=== PATIENT | male | born 1960 | race Caucasian/White ===

== ENCOUNTER → 2017-09-21 | Outpatient (CLI) | payer BC, OTHER ==
[~2017-09-21] MED LIST: CYCL10TA45 PO; CYCL10TA9 PO; FRONT WHEELED WALKER; HYDR-3874 PO; INDO25CA15 PO; LORA0.5T34 PO; Lisinopril PO; Metoprolol Succinate PO; OXYC1TAB12 PO; PRD20T PO; Senna PO
--- NOTE | 2017-09-21 15:17 | Diagnostic Imaging Report ---
PROCEDURE: CT urinary tract, rule out kidney stone. TECHNIQUE: Multiple contiguous axial images were obtained through the abdomen and pelvis without the use of intravenous contrast. INDICATION: Right flank pain. FINDINGS: Lung bases are clear. There is mild hepatic steatosis. Gallbladder is present. Pancreas is normal. Spleen is not enlarged. Adrenals are normal. There is no mass, calculus or hydronephrosis in either kidney. Ureters are not dilated. Urinary bladder appears normal. There are calcifications in the prostate. Small bowel is not dilated. There are a few diverticula in the colon but no evidence of diverticulitis. There is no intraperitoneal free air or free fluid. There is no evidence for appendicitis. IMPRESSION: Uncomplicated diverticulosis of the colon. No acute abnormality is seen. Patient has had previous lumbar spine fusion at L3-4. Dictated by: Dictated on workstation # [id number]
== END ==
LOC: RAD 14:27
PROVIDERS: ATTEND Nurse Practitioner Family
DX: K57.30 Diverticulosis of large intestine without perforation or abscess without bleeding (principal); M54.9 Dorsalgia, unspecified; Z98.1 Arthrodesis status
CPT/HCPCS: 74176

== ENCOUNTER → 2017-12-15 | Outpatient (CLI) | payer BC | LOC: CARD 13:46 | PROVIDERS: ATTEND Family Medicine | DX: R01.1 Cardiac murmur, unspecified (principal); R53.83 Other fatigue; R07.9 Chest pain, unspecified; I37.1 Nonrheumatic pulmonary valve insufficiency; Z82.49 Family history of ischemic heart disease and other diseases of the circulatory system | CPT/HCPCS: 93306 ==

== ENCOUNTER 2017-12-27 19:53 | Outpatient (CLI) | payer BC | END 2017-12-28 01:16 | disposition home or self-care (01) | LOC: SLEEP 19:53 | PROVIDERS: ATTEND Family Medicine | DX: G47.33 Obstructive sleep apnea (adult) (pediatric) (principal); R06.83 Snoring; I10 Essential (primary) hypertension; G47.00 Insomnia, unspecified; G47.10 Hypersomnia, unspecified; F39 Unspecified mood [affective] disorder ==

== ENCOUNTER → 2017-12-27 | Outpatient (CLI) | payer BC | LOC: CARD 13:25 | PROVIDERS: ATTEND Internal Medicine Cardiovascular Disease | DX: R01.1 Cardiac murmur, unspecified (principal); R53.83 Other fatigue; R07.9 Chest pain, unspecified; Z82.49 Family history of ischemic heart disease and other diseases of the circulatory system | CPT/HCPCS: 93017 ==

== ENCOUNTER 2018-11-17 10:50 | Emergency (ER) | payer BC ==
[~2018-11-17] VITALS: Ht 172.7 cm; Wt 108.9 kg
[~2018-11-17 10:50] MED LIST changes: +ASPIRIN 81 MG CHEW (CHILDREN'S ASA) ONE; +NITROGLYCERIN 0.4 MG SL TABS BTL 25'S SL ONE
[2018-11-17 11:05] LABS: BASOPHILS # (AUTO) 0.1 10^3/uL (0.0-0.1); BASOPHILS % (AUTO) 1 % (0-10); EOSINOPHILS # (AUTO) 0.3 10^3/uL (0.0-0.3); EOSINOPHILS % (AUTO) 3 % (0-10); HEMATOCRIT 40 % (40-54); HEMOGLOBIN 13.3 G/DL (13.3-17.7); LYMPHOCYTES # (AUTO) 2.7 X 10^3 (1.0-4.0); LYMPHOCYTES % (AUTO) 34 % (12-44); MEAN CORPUSCULAR HEMOGLOBIN 31 PG (25-34); MEAN CORPUSCULAR HGB CONC 33 G/DL (32-36); MEAN CORPUSCULAR VOLUME 94 FL (80-99); MEAN PLATELET VOLUME 9.8 FL (7.4-10.4); MONOCYTES % (AUTO) 12 % (0-12); NEUTROPHILS # (AUTO) 4.1 X 10^3 (1.8-7.8); NEUTROPHILS % (AUTO) 51 % (42-75); PLATELET COUNT 255 10^3/uL (130-400); RED CELL DISTRIBUTION WIDTH 13.8 % (10.0-14.5); WHITE BLOOD COUNT 8.1 10^3/uL (4.3-11.0)
[2018-11-17] MEDS ORDERED: NS IV 1000 ML 1,000 ML ONE (11:11)
[2018-11-17 11:26] LABS: ALANINE AMINOTRANSFERASE 18 U/L (0-55); ALBUMIN 4.4 GM/DL (3.2-4.5); ALKALINE PHOSPHATASE 46 U/L (40-136); BILIRUBIN,TOTAL 0.4 MG/DL (0.1-1.0); BUN/CREATININE RATIO 21; CALCIUM 9.5 MG/DL (8.5-10.1); CARBON DIOXIDE 25 MMOL/L (21-32); CHLORIDE 105 MMOL/L (98-107); CREATININE SERUM 1.05 MG/DL (0.60-1.30); GFR ESTIMATED > 60; GLUCOSE 99 MG/DL (70-105); POTASSIUM 4.1 MMOL/L (3.6-5.0); SODIUM 140 MMOL/L (135-145); TOTAL PROTEIN 7.5 GM/DL (6.4-8.2)
--- NOTE | 2018-11-17 11:30 | Diagnostic Imaging Report ---
Patient History: Chest pain. Radiation to the left jaw. Technique: Single frontal view of the chest Comparison: 04/15/2008 FINDINGS: The lung volumes are normal. No focal consolidation is seen. Left basilar atelectasis is present. No large pleural effusion or pneumothorax is seen. The cardiomediastinal silhouette is enlarged. No acute osseous abnormality is seen. IMPRESSION: 1. Left basilar atelectasis. 2. Cardiomegaly. Dictated by: Dictated on workstation # [id number]
--- NOTE | 2018-11-17 11:43 | ED Chest Pain ---
General Chief Complaint: Chest Pain Stated Complaint: CHEST PAIN,CONFUSION,JAW PAIN Nursing Triage Note: PT CO OF C/P PT STATES STARTED ABOUT 0930, RATES PAIN 5/10 STATES RADIATES INTO L JAW. WAS GIVEN 3-81MG ASA BY . CO OF NAUSEA BUT NO VOMITING. STATES THINKS INDIGESTION Nursing Sepsis Screen: No Definite Risk Source: patient Exam Limitations: no limitations (CONSTANTINO ERICKSON MD) History of Present Illness Date Seen by Provider: Nov 17, 2018 Time Seen by Provider: 11:37 Initial Comments The patient is a 58-year-old white male who presents with a complaint of chest pain. He reports that this began at about 0930. He had not done any physical activity to that point. He had eaten and was prepared to leave home to run errands. He has had fleeting episodes of chest pain before. He had an angiogram done in April 2008 which was negative for vascular bites showed an ejection fraction at the lower limits of normal. Timing/Duration: 1-3 hours Severity/Quality: mild, moderate Location: substernal Radiation: jaw, shoulders Prior CP/Workup: cardiac cath, echocardiography (CONSTANTINO ERICKSON MD) Allergies and Home Medications Allergies Coded Allergies: codeine (Verified Allergy, Unknown, 04/15/08) Home Medications Cyclobenzaprine Hcl 10 Mg Tablet, 10 MG PO TID PRN for SPASMS Prescribed by: GLORIA FIGUEROA on 01/09/141728 Indomethacin 25 Mg Capsule, 25 MG PO TID Prescribed by: CONSTANTINO ERICKSON on 02/01/15 1500 Lorazepam 0.5 Mg Tablet, 0.5 MG PO Q4H PRN for ANXIETY/AGGITATION Prescribed by: GLORIA FIGUEROA on 01/09/141728 Oxycodone Hcl/Acetaminophen 1 Tab Tablet, 1-2 TAB PO Q4H PRN for SEVERE PAIN Prescribed by: GLORIA FIGUEROA on 01/09/141728 [Lisinopril] 10 MG TAB, 10 MG PO DAILY Prescribed by: CONCEPCIÓN WHITTINGTON on 01/09/14 08 [Metoprolol Succinate] 25 MG TAB, 25 MG PO DAILY Prescribed by: CONCEPCIÓN WHITTINGTON on 01/09/14 08 [Senna] 1 EA TABLET, 2 EA PO BID Prescribed by: CONCEPCIÓN WHITTINGTON on 01/09/14 08 Patient Home Medication List Home Medication List Reviewed: Yes (DIEGO SCHULTE APRN) Review of Systems Review of Systems Constitutional: see HPI EENTM: No Symptoms Reported Respiratory: No Symptoms Reported Cardiovascular: See HPI Gastrointestinal: No Symptoms Reported Genitourinary: No Symptoms Reported Musculoskeletal: no symptoms reported Skin: no symptoms reported Psychiatric/Neurological: No Symptoms Reported Endocrine: No Symptoms Reported Hematologic/Lymphatic: No Symptoms Reported (CONSTANTINO ERICKSON MD) Past Ouncbyu-Msvxyk-Zksfpn Hx Patient Social History Alcohol Use: Denies Use Recreational Drug Use: No Smoking Status: Never a Smoker Recent Foreign Travel: No Contact w/Someone Who Travel: No Recent Infectious Disease Expo: No Recent Hopitalizations: No (CONSTANTINO ERICKSON MD) Immunizations Up To Date Tetanus Booster (TDap): Unknown (CONSTANTINO ERICKSON MD) Past Medical History Surgeries: Yes (CARPEL TUNNEL L&R, KNEE SCOPE,LSHOULDER,L FOOT, BACK SURGERY IN 1977, ) Open Heart Surgery, Transurethral Resection Respiratory: No Cardiac: No Hypertension Neurological: No Reproductive Disorders: No Gastrointestinal: No Musculoskeletal: Yes Endocrine: No Cancer: No Psychosocial: Yes Integumentary: Yes (SKIN GRAFTS) Blood Disorders: No (CONSTANTINO ERICKSON MD) Family Medical History Cancer of mouth 19 FATHER Cardiovascular disease 19 FATHER Myocardial infarction 19 FATHER No Family History of: AIDS Abdominal aortic aneurysm Wai's disease Alcoholism Alzheimer's disease Aphasia Arthritis Asthma Cataracts Colon cancer Completed stroke Congenital disease Congenital heart disease Coronary thrombosis Cystic fibrosis Deafness or hearing loss Dementia Diabetes mellitus Drug abuse Dysphasia Fibrocystic disease of breast Gastroenteritis Glaucoma Headache disorder Hypercholesterolemia Hypertension Infertility Kidney disease Neoplasm Not obtainable due to adoption Osteoporosis Parkinson's disease Prostate cancer Psychosocial problem Respiratory disorder Seizure disorder Severe allergy Thyroid disease Tuberculosis Visual disorder Physical Exam Vital Signs Vital Signs - First Documented 11/17/18 10:52 Temp 98.1 Pulse 64 Resp 18 B/P (MAP) 123/70 (87) Pulse Ox 94 (DIEGO SCHULTE APRN) Vital Signs Capillary Refill : Less Than 3 Seconds (CONSTANTINO ERICKSON MD) Height, Weight, BMI Height: 5'8.00" Weight: 240lbs. 0.2oz. 108.758525dm; BMI Method:Stated General Appearance: Mild Distress HEENT: Normal ENT Inspection Neck: Normal Inspection Respiratory: Chest Non Tender, Lungs Clear, Normal Breath Sounds, No Accessory Muscle Use, No Respiratory Distress Cardiovascular: Regular Rate, Rhythm, No Edema, No Gallop, No JVD, No Murmur, Normal Peripheral Pulses Gastrointestinal: Normal Bowel Sounds (obese), Non Tender, Other Extremity: Normal Capillary Refill, Normal Inspection, Normal Range of Motion, Non Tender, No Calf Tenderness, No Pedal Edema Neurologic/Psychiatric: Alert, Oriented x3, No Motor/Sensory Deficits, Normal Mood/Affect Skin: Normal Color, Warm/Dry Lymphatic: No Adenopathy (CONSTANTINO ERICKSON MD) Progress/Results/Core Measures Results/Orders Lab Results Laboratory Tests Test 11/17/18 11:00 11/17/18 13:00 Range/Units White Blood Count 8.1 4.3-11.0 10^3/uL Red Blood Count 4.28 L 4.35-5.85 10^6/uL Hemoglobin 13.3 13.3-17.7 G/DL Hematocrit 40 40-54 % Mean Corpuscular Volume 94 80-99 FL Mean Corpuscular Hemoglobin 31 25-34 PG Mean Corpuscular Hemoglobin Concent 33 32-36 G/DL Red Cell Distribution Width 13.8 10.0-14.5 % Platelet Count 255 130-400 10^3/uL Mean Platelet Volume 9.8 7.4-10.4 FL Neutrophils (%) (Auto) 51 42-75 % Lymphocytes (%) (Auto) 34 12-44 % Monocytes (%) (Auto) 12 0-12 % Eosinophils (%) (Auto) 3 0-10 % Basophils (%) (Auto) 1 0-10 % Neutrophils # (Auto) 4.1 1.8-7.8 X 10^3 Lymphocytes # (Auto) 2.7 1.0-4.0 X 10^3 Monocytes # (Auto) 1.0 0.0-1.0 X 10^3 Eosinophils # (Auto) 0.3 0.0-0.3 10^3/uL Basophils # (Auto) 0.1 0.0-0.1 10^3/uL Sodium Level 140 135-145 MMOL/L Potassium Level 4.1 3.6-5.0 MMOL/L Chloride Level 105 98-107 MMOL/L Carbon Dioxide Level 25 21-32 MMOL/L Anion Gap 10 5-14 MMOL/L Blood Urea Nitrogen 22 H 7-18 MG/DL Creatinine 1.05 0.60-1.30 MG/DL Estimat Glomerular Filtration Rate > 60 BUN/Creatinine Ratio 21 Glucose Level 99 70-105 MG/DL Calcium Level 9.5 8.5-10.1 MG/DL Corrected Calcium 9.2 8.5-10.1 MG/DL Total Bilirubin 0.4 0.1-1.0 MG/DL Aspartate Amino Transf (AST/SGOT) 13 5-34 U/L Alanine Aminotransferase (ALT/SGPT) 18 0-55 U/L Alkaline Phosphatase 46 40-136 U/L Troponin I < 0.028 < 0.028 <0.028 NG/ML Total Protein 7.5 6.4-8.2 GM/DL Albumin 4.4 3.2-4.5 GM/DL (DIEGO SCHULTE APRN) Medications Given in ED Current Medications Medications Dose Ordered Sig/[facility] Route Start Time Stop Time Status Last Admin Dose Admin Aspirin 81 mg STK-MED ONCE .ROUTE 11/17/18 10:50 11/17/18 10:58 DC 11/17/18 11:00 81 MG Nitroglycerin 0.4 mg STK-MED ONCE SL 11/17/18 10:50 11/17/18 10:58 DC 11/17/18 11:00 0.4 MG Sodium Chloride 1,000 ml @ ud STK-MED ONCE .ROUTE 11/17/18 11:11 11/17/18 11:19 DC 11/17/18 11:21 1,000 MLS/HR (DIEGO SCHULTE APRN) Vital Signs/I&O 11/17/18 10:52 Temp 98.1 Pulse 64 Resp 18 B/P (MAP) 123/70 (87) Pulse Ox 94 (DIEGO SCHULTE APRN) Blood Pressure Mean: 87 Departure Communication (Admissions) [address] Coy who is the hospitalist today. The first troponin was negative. We elected to repeat in 2 hours which would take as to 1300 and consider discharge for outpatient workup if troponin is still in the normal range and he has no more symptoms. 1255 transferred care to Mr. Schulte. The patient will have disposition dependent on his troponin number 2 (CONSTANTINO ERICKSON MD) 7375-patient remains pain-free sitting up in bed feeling well states he is ready to go home. EKG is sinus without ST segment changes or ectopy. The repeat troponin still negative. He had a clean heart catheter entirely in regards to the coronary arteries in 2008. He reports the pain in his chest began in the suprasternal notch and follow down the midline of his chest to the epigastric region. GERD versus esophageal spasm could've contributed to this. (DIEGO SCHULTE APRN) Impression Primary Impression: Chest pain Qualified Codes: R07.9 - Chest pain, unspecified Disposition: HOME, SELF-CARE Condition: Stable Departure-Patient Inst. Decision time for Depature: 13:56 (DIEGO SCHULTE APRN) Referrals: ROX PETERS MD FACP [facility] Dawna QUINONES MD, BASHAR J MD ORENDER, JACQUELINE S DO (PCP/Family) Primary Care Physician Patient Instructions: Chest Pain (DC) Add. Discharge Instructions: 1. It would still be worthwhile to follow-up with a human resources coordinator for evaluation and to discuss stress testing in the next few weeks. Return to ER for any concerns or recurrent symptoms. All discharge instructions reviewed with patient and/or family. Voiced understanding. CONSTANTINO ERICKSON MD Nov 17, 2018 11:43 DIEGO SCHULTE APRN Nov 17, 2018 13:58
[2018-11-17 14:07] VITALS: BP 109/71
== END 2018-11-17 14:07 | disposition home or self-care (01) ==
LOC: EDUNIT# 10:50 → ER 10:52
DX: R07.2 Precordial pain (principal); I10 Essential (primary) hypertension; Z88.5 Allergy status to narcotic agent; Z82.49 Family history of ischemic heart disease and other diseases of the circulatory system; Z80.0 Family history of malignant neoplasm of digestive organs
CPT/HCPCS: 36415; 71045; 80053; 84484; 85025; 93005; 96360

== ENCOUNTER 2019-03-21 05:36 | Outpatient (CLI) | payer BC ==
[~2019-03-21] VITALS: Ht 175.3 cm; Wt 117.7 kg
[~2019-03-21 05:36] MED LIST changes: -ASPIRIN 81 MG CHEW (CHILDREN'S ASA) ONE; -NITROGLYCERIN 0.4 MG SL TABS BTL 25'S SL ONE
[2019-03-21] MEDS ORDERED: OMEP40CA36 PO (09:01)
[2019-03-21] MEDS ORDERED: SERT50TA9 PO (09:01)
[2019-03-21] MEDS ORDERED: AMLO5TAB9 PO (09:01)
[2019-03-21] MEDS ORDERED: CETI10TA20 PO (09:01)
[2019-03-21] MEDS ORDERED: HYDR25TA4 PO (09:01)
[2019-03-21] MEDS ORDERED: LISI40TA PO (09:01)
[2019-03-22] MEDS ORDERED: PANT40TA2 PO (10:31)
== END 2019-03-21 09:12 | disposition home or self-care (01) ==
LOC: PREOP 05:36
PROVIDERS: ATTEND Surgery
DX: Z01.818 Encounter for other preprocedural examination (principal)

== ENCOUNTER 2019-03-22 09:02 | Day surgery (SDC) | payer BC ==
[~2019-03-22] VITALS: Ht 175.3 cm; Wt 117.7 kg
[2019-03-22] VITALS (11 sets, daily range): BP systolic 108–170; BP diastolic 57–93
[~2019-03-22 09:02] MED LIST changes: +AMLO5TAB9 PO; +CETI10TA20 PO; +HYDR25TA4 PO; -INDO25CA15 PO; +INDO25CA99 PO; +LISI40TA PO; +OMEP40CA27 PO; +SERT50TA9 PO
[2019-03-22] MEDS ORDERED: NS IV 500 ML 500 ML ONE (09:11)
[2019-03-22] MEDS ORDERED: NS IV 500 ML 500 ML IV PRN (09:11)
[2019-03-22] MEDS ORDERED: LIDOCAINE JELLY 2% 6 ML SYRINGE MM PRN (09:15)
[2019-03-22] MEDS ORDERED: HURRICAINE EXT TUBE (BENZOCAINE) XX PRN (09:15)
[2019-03-22] MEDS ORDERED: fentaNYL INJECTION 100 MCG/2 ML AMP IVP ONE (09:15)
[2019-03-22] MEDS ORDERED: HURRICAINE EXT TUBE (BENZOCAINE) ONE (10:17)
[2019-03-22] MEDS ORDERED: LIDOCAINE JELLY 2% 6 ML SYRINGE ONE (10:17)
[2019-03-22] MEDS ORDERED: MIDAZOLAM 5 MG/5 ML (VERSED) VIAL ONE ×2 (10:17)
[2019-03-22] MEDS ORDERED: fentaNYL INJECTION 100 MCG/2 ML AMP ONE (10:17)
--- NOTE | 2019-03-22 10:28 | Conscious Sedation/ASA ---
Conscious Sedation Pre-Proced Time 10:00 ASA Score 2 For ASA 3 and 4: Consider anesthesia and medical clearance. Also, for patients with a history of failed moderate sedation consider anesthesia. Airway Lungs Heart ASA score ASA 1: a normal healthy patient ASA 2: a patient with a mild systemic disease (mid diabetes, controlled hypertension, obesity ASA 3: a patient with a severe systemic disease that limits activity (angina, COPD, prior Myocardial infarction) ASA 4: a patient with an incapacitating disease that is a constant threat to life (CHF, renal failure) ASA 5: a moribund patient not expected to survive 24 hrs. (ruptured aneurysm) ASA 6: a declared brain- patient whose organs are being harvested. For emergent operations, add the letter E after the classification Mallampati Classification Grade 2 Sedation Plan Analgesia, Amnesia, Plan communicated to team members, Discussed options with patient/fam, Discussed risks with patient/fam The patient is an appropriate candidate to undergo the planned procedure, sedation, and anesthesia. The patient immediately re-assessed prior to indication. MARISABEL NORRIS MD Mar 22, 2019 10:28
[2019-03-22] MEDS: MIDAZOLAM 5 MG/5 ML (VERSED) VIAL IV PRN ×2 (10:29→10:41)
--- NOTE | 2019-03-22 10:29 | Progress Note-Pre Operative ---
Pre-Operative Progress Note H&P Reviewed The H&P was reviewed, patient examined and no changes noted. Date Seen by Provider: Mar 22, 2019 Time Seen by Provider: 10:00 Date H&P Reviewed: Mar 22, 2019 Time H&P Reviewed: 10:00 Pre-Operative Diagnosis: PUD, GERD MARISABEL NORRIS MD Mar 22, 2019 10:29
[2019-03-22] MEDS ORDERED: ACETAMINOPHEN 325 MG TABLET PO PRN (10:30)
[2019-03-22] MEDS ORDERED: ONDANSETRON 4 MG/2 ML (SDV) Z0FRAN IVP PRN (10:30)
[2019-03-22] MEDS ORDERED: HYDROcodone/APAP 5 MG/325 MG (LORTAB) TAB PO PRN (10:30)
[2019-03-22] MEDS ORDERED: morphine INJ 10 MG/ML 1ML (SYR OR VIAL) IVP PRN ×2 (10:30)
[2019-03-22] MEDS ORDERED: PANT40TA2 PO (10:31)
--- NOTE | 2019-03-22 10:32 | Discharge Inst-Surgical ---
D/C Lap Instructions-MYRNA New, Converted, or Re-Newed RX: RX on Chart Follow Up Appt in 2 weeks Activity as tolerated High Fiber Diet 25g or more per day Avoid Alcohol, Caffeine, Spicy [place] and Acid foods. Drink 64 fluid oz or more of fluids per day. Symptoms to Report: Fever over 101 degree F, Nausea/Vomiting If any problems/questions: Contact your physician or go to Emergency Room MARISABEL NORRIS MD Mar 22, 2019 10:31
--- NOTE | 2019-03-22 11:09 | Progress Note-Post Operative ---
Post-Operative Progess Note Surgeon (s)/Business Management Consultant (s) Surgeon MARISABEL NORRIS MD Business Management Consultant: none Pre-Operative Diagnosis PUD, GERD Post-Operative Diagnosis reflux esophagitis(stage 2), mild esoph stricture, small HH(2cm), moderate gastritis. Procedure & Operative Findings Date of Procedure 03/22/19 Procedure Performed/Findings EGD with bx. Anesthesia Type CS Estimated Blood Loss Estimated blood loss (mL): minimal Specimens/Packing Specimens Removed ge jxn, antrum MARISABEL NORRIS MD Mar 22, 2019 11:09
--- NOTE | 2019-03-22 16:39 | OPERATIVE REPORT ---
DATE OF SERVICE: 03/22/2019 ATTENDING PRIMARY CARE PHYSICIAN: Tala Robles DO PREOPERATIVE DIAGNOSES: History of peptic ulcer disease and mild gastroesophageal reflux disease. POSTOPERATIVE DIAGNOSES: Reflux esophagitis stage II with a mild distal esophageal stricture and Schatzki's ring, small hiatal hernia 2 cm in size, moderate gastritis. No formal ulcerations and no distal obstructions. PROCEDURE: EGD with biopsy. SURGEON: Marisabel Norris MD. ANESTHESIA: Conscious sedation. ESTIMATED BLOOD LOSS: Minimal. FINDINGS: Reflux esophagitis stage II with a mild distal esophageal stricture and Schatzki's ring, small hiatal hernia 2 cm in size, moderate gastritis. No formal ulcerations and no distal obstructions. DISPOSITION: The patient tolerated the procedure well. INDICATIONS: The patient is a 58-year-old male referred over to us for an upper endoscopy. He has a history of smoking as well as heavy alcohol use. He was involved in a third degree ervin of his hands, requiring multiple debridement and skin grafting as well as a physical therapy and range of motion. Since that time, he has refrained from drinking alcohol. He does report that he has had issues with heartburn as well as peptic ulcer disease in the past and is currently on omeprazole 40 mg daily. He is currently undergoing cardiac workup, which will include a stress test and possible cardiac catheterization and anticoagulation therapy. DESCRIPTION OF PROCEDURE: The patient was brought to the endoscopy suite, laid in the left lateral decubitus position. After adequate IV pain and sedative medications and conscious sedation anesthesia, the mouthpiece was applied. The endoscope was placed in the mouth, visualizing the pharynx and hypopharyngeal region. Vocal cords, epiglottis and vallecula identified and appeared to be normal. The endoscope was then gently intubated into the esophageal opening and esophagus insufflated. The endoscope was then advanced to the first, second and third portion of the esophagus at the level of the GE junction, a reflux esophagitis stage II identified as well as a mild distal esophageal stricture and Schatzki's ring. A biopsy was taken of the GE junction with forceps with visualization of good hemostasis. The endoscope was then advanced into the stomach and endoscope retroflexed, visualizing a small hiatal hernia approximately 2 cm in size. There was a moderate severity gastritis. No formal ulcerations, polyps, nor any neoplasms identified. A biopsy was taken of the antrum to rule out H. pylori with visualization of good hemostasis. The endoscope was then advanced to the pylorus and the first and second portion of the duodenum, which appeared normal and no distal obstructions as well as no ulcerations. The endoscope was then slowly withdrawn while taking a second look and suctioning of residual air with no additional findings. The patient tolerated the procedure well. We will recommend the necessary lifestyle and diet accommodation including cessation from alcohol and tobacco products as well as caffeinated beverages, spicy, greasy and acidic foods as well as taking a small and more frequent meals, avoidance of eating at night as well as head elevation while lying supine. Any diet and exercise regimen that helps with weight maintenance and loss would also be beneficial. We will also switch him from omeprazole 40 mg to pantoprazole 40 mg daily. There are no contraindications to anticoagulation. Job ID: [id number] DocumentID: [id number] Dictated Date: 03/22/2019 11:09:11 Real Estate Firm Manager Date: 03/22/2019 16:38:08 Dictated By: MARISABEL NORRIS MD
== END 2019-03-22 11:30 | disposition home or self-care (01) ==
LOC: ENDO 09:02
PROVIDERS: ATTEND Surgery
DX: K21.0 Gastro-esophageal reflux disease with esophagitis (principal); K22.2 Esophageal obstruction; K29.50 Unspecified chronic gastritis without bleeding; K44.9 Diaphragmatic hernia without obstruction or gangrene; I10 Essential (primary) hypertension; G47.33 Obstructive sleep apnea (adult) (pediatric); Z88.5 Allergy status to narcotic agent; Z79.899 Other long term (current) drug therapy; Z87.11 Personal history of peptic ulcer disease; Z87.891 Personal history of nicotine dependence; Z82.49 Family history of ischemic heart disease and other diseases of the circulatory system; Z80.8 Family history of malignant neoplasm of other organs or systems

== ENCOUNTER → 2019-04-03 | Outpatient (CLI) | payer BC ==
[~2019-04-03] VITALS: Ht 175 cm; Wt 117.0 kg
[~2019-04-03] MED LIST changes: +CATHETER FLUSH 10 ML SYR IV PRN; +PANT40TA2 PO
[2019-04-03 08:49] VITALS: BP 137/78
--- NOTE | 2019-04-03 19:33 | STRESS TEST ---
DATE OF SERVICE: 04/03/2019 EXERCISE MYOVIEW STRESS TEST REPORT REFERRING PHYSICIAN: Tala Robles DO Baseline heart rate is 54, baseline blood pressure 126/83. Baseline EKG is sinus rhythm with no ischemic changes. In summary, the patient was injected with 10.98 mCi of technetium-99 Myoview and the resting images were obtained. Then, the patient started exercising with a baseline heart rate, blood pressure and EKG mentioned above. The patient was able to exercise for 9 minutes and 30 seconds on standard Morteza protocol. With peak exercise level, occasional PVCs were noted. No acute ischemic changes. The patient was injected with 29.2 mCi of technetium-99 Myoview. During recovery, heart rate and blood pressure returned to baseline. EKG returned to baseline. The resting and stress images were reviewed and compared in the short axis, horizontal long axis, and vertical long axis views. Review of the images showed good radiotracer uptake with no significant ischemia or infarction. SSS is 5, SDS 1, TID value 1.03. On the gated images, the left ventricle appeared to be normal size with normal contractility. Calculated ejection fraction 62%. CONCLUSION: 1. Good exercise tolerance, a total of 9 minutes 30 seconds on standard Morteza protocol, total of 10.3 METS achieving 88% of maximum expected heart rate. 2. Severe hypertensive response to exercise with peak blood pressure 233/76 returned to baseline during recovery. 3. Minimal nondiagnostic EKG changes with exercise returned to baseline during recovery. 4. No ischemia or infarction on SPECT images. 5. Normal left ventricular size with normal contractility. Calculated ejection fraction 62%. Job ID: [id number] DocumentID: [id number] Dictated Date: 04/03/2019 15:19:31 Driving Instructor Date: 04/03/2019 19:32:06 Dictated By: UPJA LOPEZ MD
== END ==
LOC: CARD 03-25 06:32
PROVIDERS: ATTEND Internal Medicine Cardiovascular Disease
DX: I34.0 Nonrheumatic mitral (valve) insufficiency (principal); I10 Essential (primary) hypertension; G47.33 Obstructive sleep apnea (adult) (pediatric)
CPT/HCPCS: 78452; 93017

== ENCOUNTER → 2020-03-17 | Outpatient (CLI) | payer BC ==
[~2020-03-17] MED LIST changes: +AMLO-250 PO; -AMLO5TAB9 PO; -CATHETER FLUSH 10 ML SYR IV PRN; -CETI10TA20 PO; +CETI10TA49 PO
--- NOTE | 2020-03-17 14:28 | Diagnostic Imaging Report ---
EXAMINATION: CT head without contrast. TECHNIQUE: Multiple contiguous axial images were obtained through the brain without the use of intravenous contrast. All CT scans use one or more of the following dose optimizing techniques: automated exposure control, MA and/or KvP adjustment based on a patient size and exam type, or iterative reconstruction. HISTORY: Right-sided headache. Family history of brain tumor. COMPARISON: CT head on 01/02/2014. FINDINGS: No large acute territorial ischemia, mass, or hemorrhage. No midline shift or mass effect. The ventricles, cortical sulci, and basilar cisterns are patent and unremarkable. The orbits are normal. Paranasal sinuses are normal. Mastoid air cells are clear. No soft tissue abnormality is seen. No osseus lesions or fractures are seen. IMPRESSION: 1. No large acute territorial ischemia, mass, or hemorrhage. Dictated by: Dictated on workstation # [id number]
== END ==
LOC: RAD 13:56
PROVIDERS: ATTEND Family Medicine
DX: R51.9 Headache, unspecified (principal); Z85.841 Personal history of malignant neoplasm of brain
CPT/HCPCS: 70450

== ENCOUNTER → 2020-04-20 | Outpatient (CLI) | payer BC ==
[~2020-04-20] VITALS: Ht 175.3 cm; Wt 113.6 kg
[~2020-04-20] MED LIST changes: +BAMLANIVIMAB (NON FORM) 700 MG in NS (IVPB) 250 ML IV ONE; +EPINEPHrine INJECTION 1 MG/ML AMP IM PRN; +diphenhydrAMINE 50 MG/ML INJ (BENADRYL) IV PRN
[2020-04-20 12:12] VITALS: BP 125/69
[2020-04-20 14:22] VITALS: BP 115/74
== END ==
LOC: INFUSION 12:15
PROVIDERS: ATTEND Nurse Practitioner Family
DX: U07.1 COVID-19 (principal)

== ENCOUNTER → 2020-12-29 | Outpatient (CLI) | payer BC ==
[~2020-12-29] MED LIST changes: -BAMLANIVIMAB (NON FORM) 700 MG in NS (IVPB) 250 ML IV ONE; -EPINEPHrine INJECTION 1 MG/ML AMP IM PRN; -LISI40TA PO; +LISI40TA9 PO; -OMEP40CA27 PO; +OMEP40CA6 PO; +SERT-413 PO; -SERT50TA9 PO; -diphenhydrAMINE 50 MG/ML INJ (BENADRYL) IV PRN
== END ==
LOC: LABNPT 06:31
PROVIDERS: ATTEND Orthopaedic Surgery Orthopaedic Surgery of the Spine
DX: Z01.812 Encounter for preprocedural laboratory examination (principal); Z20.822 Contact with and (suspected) exposure to COVID-19
CPT/HCPCS: 87635

== ENCOUNTER 2021-12-07 11:24 | Outpatient (CLI) | payer BC ==
[~2021-12-07] VITALS: Ht 175.3 cm; Wt 118.4 kg
== END 2021-12-07 12:10 ==
LOC: PREOP 11:24
PROVIDERS: ATTEND Surgery
DX: Z01.818 Encounter for other preprocedural examination (principal); Z12.11 Encounter for screening for malignant neoplasm of colon

== ENCOUNTER 2021-12-08 12:31 | Day surgery (SDC) | payer BC ==
[~2021-12-08] VITALS: Ht 175 cm; Wt 118.4 kg
[2021-12-08] MEDS ORDERED: LACTATED RINGERS 1,000 ML IV STA (12:33)
[2021-12-08] MEDS ORDERED: LIDOCAINE JELLY 2% 6 ML SYRINGE MM PRN (12:45)
[2021-12-08] MEDS ORDERED: HURRICAINE EXT TUBE (BENZOCAINE) XX PRN (12:45)
[2021-12-08 12:55] VITALS: BP 131/78
--- NOTE | 2021-12-08 13:07 | Progress Note-Pre Operative ---
Pre-Operative Progress Note Date of Available H&P: Dec 08, 2021 Date H&P Reviewed: Dec 08, 2021 Time H&P Reviewed: 13:00 History & Physical: No changes noted Pre-Operative Diagnosis: GERD, rectal bleed, anemia MARISABEL NORRIS MD Dec 08, 2021 13:07
--- NOTE | 2021-12-08 13:09 | Discharge Inst-Surgical ---
D/C Lap Instructions-MYRNA Follow Up Activity as tolerated High Fiber Diet 25g or more per day Avoid Alcohol, Caffeine, Spicy [place] and Acid foods. Drink 64 fluid oz or more of fluids per day. Symptoms to Report: Fever over 101 degree F, Nausea/Vomiting If any problems/questions: Contact your physician or go to Emergency Room MARISABEL NORRIS MD Dec 08, 2021 13:09
[2021-12-08] MEDS ORDERED: ONDANSETRON 4 MG (ZOFRAN) ORAL DISSOLVE TAB PO PRN (13:15)
[2021-12-08] MEDS ORDERED: ONDANSETRON 4 MG/2 ML (SDV) Z0FRAN IVP PRN (13:15)
[2021-12-08] MEDS ORDERED: PROPOFOL INJECTION 50 ML IV ONE (13:39)
[2021-12-08] MEDS ORDERED: MIDAZOLAM 2 MG/2 ML (VERSED) VIAL ONE (13:39)
[2021-12-08 14:34] VITALS: BP 99/58
[2021-12-08 14:39] VITALS: BP 104/69
[2021-12-08 14:40] VITALS: BP 104/69
--- NOTE | 2021-12-08 14:49 | Progress Note-Post Operative ---
Post-Operative Progess Note Surgeon (s)/Highway Painter (s) Surgeon MARISABEL NORRIS MD Highway Painter: none Pre-Operative Diagnosis GERD, rectal bleed, anemia Post-Operative Diagnosis reflux esophagitis(grade B), small HH(2cm), moderate gastritis. chronic stage 2 ext and int hemorrhoids, chronic healed fissure, mild sigmoid diverticulosis. Procedure & Operative Findings Date of Procedure 12/08/21 Procedure Performed/Findings EGD with bx. colonoscopy Anesthesia Type mac Estimated Blood Loss Estimated blood loss (mL): minimal Specimens/Packing Specimens Removed ge jxn, antrum MARISABEL NORRIS MD Dec 08, 2021 14:49
[2021-12-08 15:25] VITALS: BP 104/69
--- NOTE | 2021-12-09 00:56 | OPERATIVE REPORT ---
DATE OF SERVICE: 12/08/2021 ATTENDING PRIMARY CARE PHYSICIAN: Marilyn Robles DO PREOPERATIVE DIAGNOSES: Gastroesophageal reflux disease, rectal bleed, anemia. POSTOPERATIVE DIAGNOSES: Reflux esophagitis, Challis grade C, small hiatal hernia approximately 2 cm in size, moderate gastritis. No distal obstructions. Chronic stage II external and internal hemorrhoids, mild sigmoid diverticulosis. PROCEDURE: EGD with biopsy, colonoscopy with biopsy. SURGEON: Marisabel Norris MD. ANESTHESIA: Monitored anesthesia care. ESTIMATED BLOOD LOSS: Minimal. DISPOSITION: The patient tolerated the procedure well. INDICATIONS: The patient is a 61-year-old male referred over to us for an EGD and colonoscopy. He has had issues with crampy abdominal pain as well as constipation and intermittent diarrhea. With these episodes, he does report noticing some self-limited red blood per rectum. He does not report any nausea, no vomiting. He does report a longstanding history of gastroesophageal reflux disease and was found to have a mild stricture at this time too. He does have a longstanding history of tobacco and alcohol abuse; however, he stopped both of them 4 years ago and has not used either since that time. He was also found to be anemic on recent laboratory work. DESCRIPTION OF PROCEDURE: The patient was brought to the endoscopy suite, laid in left lateral decubitus position. After adequate IV pain and sedative medications and monitored anesthesia care, the mouthpiece was applied. The endoscope was placed in the mouth, visualizing the pharynx and hypopharyngeal region. Vocal cords, epiglottis and vallecula identified and appeared to be normal. The endoscope was then intubated into the esophageal opening and esophagus insufflated. The endoscope was then advanced through the first, second and third portion of the esophagus at the level of the GE junction, a reflux esophagitis, Challis grade B identified. There were no ulcers or strictures identified in this region. A biopsy was taken with forceps with visualization of good hemostasis. The endoscope was then advanced in the stomach and endoscope retroflexed, visualizing a small hiatal hernia approximately 2 cm in size. There was a moderate severity gastritis more towards the stomach antrum; however, no formal ulcerations, polyps or any neoplasms. A biopsy was taken of the antrum to rule out H. pylori with visualization of good hemostasis. The endoscope was then advanced to the pylorus and the first and second portion of the duodenum, which appeared normal with no distal obstructions. The endoscope was then slowly withdrawn while taking a second look and suctioning of residual air with no additional findings. A digital rectal examination was performed, which revealed chronic stage II external and internal hemorrhoids, not actively edematous nor inflamed and no bleeding. Normal sphincter tone was felt and there were no palpable masses. Prostate gland was palpable and appeared normal. The endoscope was then intubated to the anus and rectum gently insufflated. The endoscope was then advanced to the valves of [place] of the rectum with no polyps or any neoplasms identified. Through the sigmoid colon, mild sigmoid diverticulosis identified. The endoscope was then advanced to the remainder of the descending, transverse and ascending colon to the cecum, which appeared normal with no polyps or any neoplasms identified throughout the colon or rectum. The endoscope was then slowly withdrawn while taking a second look and suctioning of residual air with no additional findings. The patient tolerated the procedure well. We will recommend the necessary and lifestyle and dietary accommodation including small and more frequent meals, avoidance of eating at night as well as head elevation while lying supine. He also needs to avoid caffeinated beverages, spicy, greasy and acidic foods. Any form of regularly scheduled diet and exercise modality to even promote a marginal amount of weight loss of 10 to 15 pounds will also help dramatically. We will also start him on omeprazole 40 mg daily to be taken at a separate time of the day from his pantoprazole. We will also recommend a high-fiber diet with addition of a fiber supplement, which equal or exceed 30 grams daily to promote a soft consistency stool on a daily basis. He does not have a family history of colon cancer and if he is asymptomatic, he does not need another colonoscopy for another 10 years. Job ID: [id number] DocumentID: [id number] Dictated Date: 12/08/2021 14:43:27 Pole Tester Date: 12/09/2021 00:55:05 Dictated By: MARISABEL NORRIS MD
--- NOTE | 2021-12-09 07:53 | Anesthesia-General Post-Op ---
MAC Patient Condition Mental Status/LOC: Same as Preop Cardiovascular: Satisfactory Nausea/Vomiting: Absent Respiratory: Satisfactory Pain: Controlled Complications: Absent Post Op Complications Complications None Follow Up Care/Instructions Patient Instructions None needed. Anesthesiology Discharge Order Discharge Order Patient was doing well yesterday after the procedure with no complaints, stable vital signs, no apparent adverse anesthesia problems. No complications reported per nursing and he was discharged to home. IRAM GHTORA DO Dec 09, 2021 07:53
== END 2021-12-08 15:25 | disposition home or self-care (01) ==
LOC: ENDO 12:31
PROVIDERS: ATTEND Surgery
DX: D12.0 Benign neoplasm of cecum (principal); K21.00 Gastro-esophageal reflux disease with esophagitis, without bleeding; K63.5 Polyp of colon; K57.30 Diverticulosis of large intestine without perforation or abscess without bleeding; K31.89 Other diseases of stomach and duodenum; D64.9 Anemia, unspecified; K44.9 Diaphragmatic hernia without obstruction or gangrene; K64.1 Second degree hemorrhoids; K64.8 Other hemorrhoids; K29.70 Gastritis, unspecified, without bleeding; Z87.891 Personal history of nicotine dependence; K92.1 Melena; E66.9 Obesity, unspecified; Z68.38 Body mass index [BMI] 38.0-38.9, adult

== ENCOUNTER 2022-03-26 19:56 | Emergency (ER) | payer BC ==
[~2022-03-26] VITALS: Ht 173 cm; Wt 119.0 kg
[2022-03-26] MEDS ORDERED: OMEP40CA6 (20:03)
[2022-03-26] MEDS ORDERED: PANT40TA52 (20:03)
[2022-03-26] MEDS ORDERED: OXYC1TAB11 (20:03)
[2022-03-26] MEDS ORDERED: NALO4SPR3 (20:03)
[2022-03-26] MEDS ORDERED: SERT-414 (20:03)
[2022-03-26] MEDS ORDERED: DIAZ5TAB49 (20:03)
[2022-03-26] MEDS ORDERED: TETANUS,DIPTH,PERTUSS P/F (BOOSTRIX) 0.5 ML VIAL IM ONE (20:15)
--- NOTE | 2022-03-26 20:46 | Diagnostic Imaging Report ---
INDICATION: Fall with head and neck pain. TECHNIQUE: Multiple contiguous axial images were obtained through the brain and cervical spine without the use of intravenous contrast. Sagittal and coronal reformations through the cervical spine were then performed. Auto Exposure Controls were utilized during the CT exam to meet ALARA standards for radiation dose reduction. COMPARISON: CT head is compared to 03/17/2020. There is no prior cervical spine CT. CTA HEAD FINDINGS: There is no extra-axial fluid collection. No intracranial hemorrhage. No intracranial mass or mass effect. No midline shift. The ventricles are normal in size and position. There is no focal parenchymal abnormality in the brain. Calvarial windows are unremarkable. Visualized portions of the sinuses are clear. CT CERVICAL SPINE FINDINGS: There is no evidence of cervical spine fracture. There is no subluxation or malalignment. Disc spaces are normal in height. IMPRESSION: 1. Negative CT head. 2. Negative CT cervical spine. Dictated by: Dictated on workstation # [id number]
--- NOTE | 2022-03-26 21:06 | ED Fall/Injury ---
General Chief Complaint: Trauma-Non Activation Stated Complaint: FALL - HIT HEAD Nursing Triage Note: TRIPPED, FELL FROM STANDING POSITION. POST SPINAL FUSION 03/08. DENIES LOC. LEFT FOREHEAD HEMATOMA/ABRAISION. 10MG VALIUM PO COMMUNITY AFFAIRS DIRECTOR (KAYLI BUSTOS) History of Present Illness Date Seen by Provider: Mar 26, 2022 Time Seen by Provider: 18:00 Initial Comments 61-year-old male reports for a fall with head injury that occurred at approximately 230 this afternoon. He had spinal fusion in the lumbar region on 03/08/[address] Cavazos, denies back or leg pain. He reports getting his foot caught causing a trip and fall, from standing. Hit his head on the ground, causing minor abrasion in the left frontal. No active bleeding. Unsure if LOC. denies headache, n/v. He took Valium 10mg 1 hour COMMUNITY AFFAIRS DIRECTOR (worried about having CT and claustrophobia) and OxyContin at 1630. Occurred: this afternoon Severity: mild Injuries/Pain Location: head, face Context: tripped Loss of Consciousness: unsure Associated Symptoms (Fall): Denies Symptoms (KAYLI BUSTOS) Allergies and Home Medications Allergies Coded Allergies: codeine (Verified Allergy, Unknown, Pt has rec Lortab and Dilaudid in the past, 03/22/19) Patient Home Medication List Home Medication List Reviewed: Yes (KAYLI BUSTOS) Amlodipine Besylate (Amlodipine Besylate) 5 Mg Tablet, 5 MG PO DAILY, (Reported) Entered as Reported by: ARABELLA BECERRA on 03/21/19 09 Cetirizine HCl (Zyrtec) 10 Mg Tablet, 10 MG PO DAILY PRN for allergies, (Reported) Entered as Reported by: ARABELLA BECERRA on 03/21/19900 Diazepam (Diazepam) 5 Mg Tablet, (Reported) Entered as Reported by: MELONIE CAREY on 03/26/222002 Last Action: New Order Hydrochlorothiazide (Hydrochlorothiazide) 25 Mg Tablet, 25 MG PO DAILY, (Reported) Entered as Reported by: ARABELLA BECERRA on 03/21/19 09 Lisinopril (Lisinopril) 40 Mg Tablet, 40 MG PO DAILY, (Reported) Entered as Reported by: ARABELLA BECERRA on 03/21/19 0901 Naloxone HCl (Naloxone HCl) 4 Mg/Actuation [place], (Reported) Entered as Reported by: MELONIE CAREY on 03/26/222002 Last Action: New Order Omeprazole (Omeprazole) 40 Mg Capsule., (Reported) Entered as Reported by: MELONIE CAREY on 03/26/222002 Last Action: New Order Oxycodone HCl/Acetaminophen (Oxycodone-Acetaminophen 5-325) 5 Mg-325 Mg Tablet, (Reported) Entered as Reported by: MELONIE CAREY on 03/26/222002 Last Action: New Order Pantoprazole Sodium (Protonix) 40 Mg Tablet.dr, 40 MG PO DAILY Prescribed by: MARISABEL NORRIS on 03/22/19 1031 Pantoprazole Sodium (Pantoprazole Sodium) 40 Mg Tablet., (Reported) Entered as Reported by: MELONIE CAREY on 03/26/222002 Last Action: New Order Sertraline HCl (Sertraline HCl) 50 Mg Tablet, 50 MG PO DAILY, (Reported) Entered as Reported by: ARABELLA BECERRA on 03/21/19 09 Sertraline HCl (Sertraline HCl) 100 Mg Tablet, (Reported) Entered as Reported by: MELONIE CAREY on 03/26/222002 Last Action: New Order Review of Systems Review of Systems Constitutional: no symptoms reported, see HPI Ears, Nose, Mouth, Throat: no symptoms reported, see HPI Respiratory: no symptoms reported, see HPI Cardiovascular: no symptoms reported, see HPI Gastrointestinal: no symptoms reported, see HPI Musculoskeletal: no symptoms reported, see HPI; No back pain, No neck pain Psychiatric/Neurological: No Symptoms Reported, See HPI; Denies Headache (KAYLI BUSTOS) All Other Systems Reviewed Negative Unless Noted: Yes (KAYLI BUSTOS) Past Ffmmsfa-Axgdlb-Upqepe Hx Patient Social History Tobacco Use?: No Substance use?: No Alcohol Use?: No Pt feels they are or have been: No (KAYLI BUSTOS) Immunizations Up To Date Tetanus Booster (TDap): Unknown First/Initial COVID19 Vaccinat: 2020 Second COVID19 Vaccination Ady: 2020 Third COVID19 Vaccination Date: NO (KAYLI BUSTOS) Seasonal Allergies Seasonal Allergies: Yes (KAYLI BUSTOS) Past Medical History Surgery/Hospitalization HX: L2 TO [facility] SPINAL FUSION, ORTHO, WRIST,HAND, ANXIETY, HTN, GERD Surgeries: Yes (bilat CARPEL TUNNEL L&R, bilat KNEE SCOPE,LSHOULDER,L FOOT, BACK Sx x2, ) Open Heart Surgery, Transurethral Resection Respiratory: Yes Sleep Apnea Currently Using CPAP: Yes Cardiac: Yes Hypertension Neurological: No Reproductive Disorders: No Genitourinary: No Gastrointestinal: Yes Gastroesophageal Reflux Musculoskeletal: Yes Arthritis Endocrine: No HEENT: No Cancer: No Psychosocial: Yes Integumentary: Yes (SKIN GRAFTS) Blood Disorders: No (KAYLI BUSTOS) Family Medical History Cancer of mouth 19 FATHER Cardiovascular disease 19 FATHER Myocardial infarction 19 FATHER No Family History of: AIDS Abdominal aortic aneurysm Sandoval's disease Alcoholism Alzheimer's disease Aphasia Arthritis Asthma Cataracts Colon cancer Completed stroke Congenital disease Congenital heart disease Coronary thrombosis Cystic fibrosis Deafness or hearing loss Dementia Diabetes mellitus Drug abuse Dysphasia Fibrocystic disease of breast Gastroenteritis Glaucoma Headache disorder Hypercholesterolemia Hypertension Infertility Kidney disease Neoplasm Not obtainable due to adoption Osteoporosis Parkinson's disease Prostate cancer Psychosocial problem Respiratory disorder Seizure disorder Severe allergy Thyroid disease Tuberculosis Visual disorder Physical Exam Vital Signs Vital Signs - First Documented 03/26/22 19:57 Temp 36.0 Pulse 59 Resp 16 B/P (MAP) 122/72 (89) Pulse Ox 93 O2 Delivery Room Air (BARBY RUBALCAVA MD) Vital Signs Capillary Refill : Less Than 3 Seconds (KAYLI BUSTOS) Height, Weight, BMI Height: 5'8.00" Weight: 240lbs. 0.2oz. 108.650434kl; 39.00 BMI Method:Stated General Appearance: WD/WN, mild distress (from fall and medications.), obese HEENT: PERRL/EOMI, normal ENT inspection, TMs normal, pharynx normal Neck: non-tender, full range of motion, supple, normal inspection Cardiovascular: normal peripheral pulses, regular rate, rhythm Respiratory: chest non-tender, lungs clear, normal breath sounds Gastrointestinal: normal bowel sounds, non tender, soft Back: normal inspection (well healed lumbar incision, no erythema or warmth), decreased range of motion; No vertebral tenderness; other (ambulates with steady gait, Power V/V L4-S1) Extremities: normal range of motion, non-tender, normal inspection, normal capillary refill 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, no motor/sensory deficits, alert, normal mood/affect, oriented x 3 Skin: normal color, warm/dry (KAYLI BUSTOS) Progress/Results/Core Measures Results/Orders Medications Given in ED Current Medications Medications Dose Ordered Sig/[place] Route Start Time Stop Time Status Last Admin Dose Admin Diphtheria/ Tetanus/Acell Pertussis 0.5 ml ONCE ONCE IM 03/26/22 20:15 03/26/22 20:16 DC 03/26/22 20:27 0.5 ML (BARBY URBALCAVA MD) Vital Signs/I&O 03/26/22 19:57 Temp 36.0 Pulse 59 Resp 16 B/P (MAP) 122/72 (89) Pulse Ox 93 O2 Delivery Room Air (BARBY RUBALCAVA MD) Blood Pressure Mean: 89 Diagnostic Imaging Diagonstic Imaging: CT Plain Films/CT/US/NM/MRI: c-spine, head Comments NAME: CIERA [facility]UNDERS [facility] REC#: [id number] PT STATUS: REG ER : 1960 PHYSICIAN: KAYLI BUSTOS ADMIT DATE: 03/26/22/ER Draft Date of Exam:03/26/22 CT HEAD/CERVICAL SPINE WO INDICATION: Fall with head and neck pain. TECHNIQUE: Multiple contiguous axial images were obtained through the brain and cervical spine without the use of intravenous contrast. Sagittal and coronal reformations through the cervical spine were then performed. Auto Exposure Controls were utilized during the CT exam to meet ALARA standards for radiation dose reduction. COMPARISON: CT head is compared to 03/17/2020. There is no prior cervical spine CT. CTA HEAD FINDINGS: There is no extra-axial fluid collection. No intracranial hemorrhage. No intracranial mass or mass effect. No midline shift. The ventricles are normal in size and position. There is no focal parenchymal abnormality in the brain. Calvarial windows are unremarkable. Visualized portions of the sinuses are clear. CT CERVICAL SPINE FINDINGS: There is no evidence of cervical spine fracture. There is no subluxation or malalignment. Disc spaces are normal in height. IMPRESSION: 1. Negative CT head. 2. Negative CT cervical spine. Dictated on workstation # [id number] Dict: 03/26/222036 Trans: 03/26/222044 [facility] [id number] Interpreted by: KANDI HENDERSON MD Electronically signed by: Reviewed: Reviewed by Me (KAYLI BUSTOS) Departure Impression Primary Impression: Fall Qualified Codes: W19.XXXA - Unspecified fall, initial encounter Additional Impressions: Head contusion Qualified Codes: S00.03XA - Contusion of scalp, initial encounter H/O Spinal surgery Disposition: HOME, SELF-CARE Condition: Improved Departure-Patient Inst. Decision time for Depature: 20:55 (KAYLI BUSTOS) Referrals: CONCEPCIÓN WHITTINGTON DO (PCP/Family) Primary Care Physician Patient Instructions: Minor Head Injury, Adult ED Add. Discharge Instructions: Continue home medications, as prescribed. Alternate Tylenol 650 mg and Ibuprofen 600 mg every 4 hours for pian. Clean wound to head with peroxide and apply triple antibiotic ointment every 8 hours. Follow up with Primary Care if symptoms worsen. Notify spine surgeon of fall on Monday or if leg/back symptoms change. Return to emergency department for confusion, altered mental status, nausea and vomiting, headache, seizures or other concerning conditions. All discharge instructions reviewed with patient and/or family. Voiced understanding. ATTENDING PHYSICIAN NOTE: I was physically present as attending physician in the emergency department during the care of this patient, but I was not directly involved in the decision making or delivery of care for this patient. (BARBY RUBALCAVA MD) Copy Copies To 1: GLORIA CAVAZOS MD; CONCEPCIÓN WHITTINGTON AMY ARNP Mar 26, 2022 21:05 BARBY RUBALCAVA MD Mar 26, 2022 21:50
[2022-03-26 21:35] VITALS: BP 115/74
== END 2022-03-26 21:38 | disposition home or self-care (01) ==
LOC: ER 19:56 → EDUNIT# 19:56 → ER 21:38
DX: S00.03XA Contusion of scalp, initial encounter (principal); G47.30 Sleep apnea, unspecified; Z99.89 Dependence on other enabling machines and devices; Z23 Encounter for immunization; Z98.890 Other specified postprocedural states; W01.0XXA Fall on same level from slipping, tripping and stumbling without subsequent striking against object, initial encounter
CPT/HCPCS: 70450; 72125; 90715